=== PATIENT | female | born 2000 | race Caucasian/White ===

== ENCOUNTER 2023-02-23 18:44 | Emergency (ER) | payer SELFPAY ==
[~2023-02-23] VITALS: Ht 162.6 cm; Wt 62.0 kg
[2023-02-23 19:00] VITALS: BP 128/78; PULSE 101; RESP 18; TEMP 98.3; O2SAT 99
== END 2023-02-23 20:39 | disposition left against medical advice (07) ==
LOC: ER 18:44
DX: R07.89 Other chest pain (principal); Z98.890 Other specified postprocedural states
CPT/HCPCS: 93005; 99283